=== PATIENT | male | born 1940 | race Caucasian/White ===

== ENCOUNTER 2017-02-24 14:44 | Outpatient (CLI) | payer OTHER | END 2017-02-24 14:45 | disposition home or self-care (01) | DX: N13.8 Other obstructive and reflux uropathy (principal); N32.3 Diverticulum of bladder ==

== ENCOUNTER 2017-06-10 17:30 | Outpatient (CLI) | payer MEDICARE | END 2017-06-10 17:31 | disposition critical access hospital (66) | LOC: EMS 17:30 | PROVIDERS: ATTEND Surgery | DX: R55 Syncope and collapse (principal) | CPT/HCPCS: A0425; A0429 ==

== ENCOUNTER 2017-06-10 17:51 | Observation (INO) | payer OTHER ==
--- NOTE | 2017-06-10 18:03 | ED Physician Documentation ---
PD HPI SYNCOPE - Stated complaint Stated Complaint: SYNCOPE - Chief complaint Chief Complaint: Cardiac - History obtained from History obtained from: Patient, Family, EMS - History of Present Illness Witnessed: Witnessed Timing - onset: Other (he has had weakness for 4 days and felt that he did not want to take his insulin (but was taking other oral medications). Today family noted his sugar was high (patient usually monitors it himself). He was also generally weak and had fainting/syncope while walking across the room trying to step over an object on the floor. Family says he looks like he was tremoring and then appeared to stop breathing for several seconds. He then aroused and was able to talk with them though sleepy.) Preceding symptoms: Light headed, Generalized weakness. No: Chest pain, Abdominal pain Associated symptoms: Seizure (tremoring activity). No: Incontinant of urine, Chest pain, Abdominal pain Contributing factors: Recent med change (he had not taken his insulin for 4 days.) Injury occurred: Fell. No: Head injury, Neck injury Treatment SOCIAL SERVICE DIRECTOR: Cardiac meds Similar symptoms before: Has not had sx before Recently seen: Not recently seen Review of Systems Constitutional: denies: Fever Nose: denies: Rhinorrhea / runny nose, Congestion Throat: denies: Sore throat Respiratory: denies: Cough GI: reports: Nausea. denies: Abdominal Pain, Vomiting, Diarrhea, Bloody / black stool : reports: Frequency Skin: denies: Abrasion (s), Laceration (s) Neurologic: reports: Generalized weakness, Syncope (today SOCIAL SERVICE DIRECTOR). denies: Focal weakness, Numbness, Altered mental status, Headache, Head injury Psychiatric: denies: Depressed, Insomnia Endocrine: denies: Weight loss Immunocompromised: denies: Immunocompromised PD PAST MEDICAL HISTORY - Past Medical History Cardiovascular: Hypertension, High cholesterol, Coronary artery disease, [place] Respiratory: None Neuro: None Endocrine/Autoimmune: Type 2 diabetes GI: None : None, Renal insuffiency (has fistula in place, pre-dialysis with Dr. Sinhg. ) HEENT: Chronic vision loss Psych: None Musculoskeletal: None Derm: None - Past Surgical History Past Surgical History: Yes Cardiovascular: CABG - Present Medications Home Medications: Ambulatory Orders Medication Instructions Recorded Confirmed Sodium Bicarbonate 3,250 mg PO BID 12/26/13 06/10/17 Atorvastatin Calcium 80 mg PO DAILY 07/22/16 06/10/17 Metoprolol Succinate [Toprol Xl] 25 mg PO BID 07/22/16 06/10/17 Tamsulosin HCl [Flomax] 0.8 mg PO DAILY 07/22/16 06/10/17 Aspirin EC [Ecotrin] 325 mg PO DAILY tablet 11/15/16 06/10/17 Insulin Aspart [NovoLOG] 1 - 9 unit SUBQ 11/15/16 0800,1200,1700,2100 pen Insulin Glargine [Lantus Solostar] 5 unit SUBQ QPM 30 Days 11/15/16 Insulin Glargine [Lantus Solostar] 40 unit SUBQ DAILY pen 11/15/16 Furosemide [Lasix] 40 mg PO DAILY 06/10/17 06/10/17 - Allergies Allergies/Adverse Reactions: Allergies Allergy/AdvReac Type Severity Reaction Status Date / Time No Known Drug Allergies Allergy Verified 11/10/16 16:00 - Social History Does the pt smoke?: No Smoking Status: Former smoker Does the pt drink ETOH?: No Does the pt have substance abuse?: No - Immunizations Immunizations are current?: Yes - POLST Patient has POLST: No PD ED PE NORMAL - Vitals Vital signs reviewed: Yes - General General: Alert and oriented X 3, No acute distress, Well developed/nourished - HEENT HEENT: Atraumatic, Ears normal, Pharynx benign. No: Moist mucous membranes - Neck Neck: Supple, no meningeal sign, No adenopathy - Cardiac Cardiac: RRR, No murmur, Other (pacemaker left chestwall without signs of pouch infection ) - Respiratory Respiratory: Clear bilaterally - Abdomen Abdomen: Normal bowel sounds, Soft, Non tender - Male Male : Deferred - Rectal Rectal: Deferred - Back Back: No CVA TTP - Derm Derm: Warm and dry. No: Normal color (mild pallor) - Extremities Extremities: No tenderness to palpate, Normal ROM s pain, No calf tenderness / cord, Other (1+ edema in both lower legs) - Neuro Neuro: Alert and oriented X 3, dust mop maker 2-12 intact, No motor deficit, Normal speech Results - Vitals Vitals: Vital Signs - 24 hr 06/10/17 06/10/17 06/10/17 17:53 19:39 20:26 Temperature 36.8 C Heart Rate 90 64 63 Respiratory 20 18 16 Rate Blood Pressure 142/75 H 145/60 H 144/54 H O2 Saturation 94 96 100 Oxygen O2 Source Room air - Labs Labs: Laboratory Tests 06/10/17 06/10/17 06/10/17 19:14 19:14 19:14 WBC 9.1 RBC 3.37 L Hgb 10.8 L Hct 31.7 L MCV 94.0 MCH 32.0 H MCHC 34.0 RDW 12.8 Plt Count 161 MPV 10.3 Neut # 6.7 H Lymph # 1.6 Tillman # 0.5 Eos # 0.2 Baso # 0.1 Absolute Nucleated RBC 0.01 Nucleated RBCs 0.1 VBG pH 7.359 VBG pCO2 29.8 L VBG pO2 122.4 H VBG HCO3 16.4 L VBG Total CO2 17.3 L VBG O2 Saturation 98.1 H VBG Base Excess -7.9 L Sodium 134 L Potassium 6.8 H* Chloride 109 Carbon Dioxide 18 L Anion Gap 7.0 BUN 56 H Creatinine 3.8 H Estimated GFR (MDRD) 16 L Glucose 488 H Calcium 9.5 Magnesium 1.6 L Total Bilirubin 0.2 AST 12 ALT 12 Alkaline Phosphatase 135 H Troponin I Total Protein 7.2 Albumin 3.4 Globulin 3.8 Albumin/Globulin Ratio 0.9 L Lipase 89 H Serum Ketones 06/10/17 06/10/17 19:14 19:14 WBC RBC Hgb Hct MCV MCH MCHC RDW Plt Count MPV Neut # Lymph # Tillman # Eos # Baso # Absolute Nucleated RBC Nucleated RBCs VBG pH VBG pCO2 VBG pO2 VBG HCO3 VBG Total CO2 VBG O2 Saturation VBG Base Excess Sodium Potassium Chloride Carbon Dioxide Anion Gap BUN Creatinine Estimated GFR (MDRD) Glucose Calcium Magnesium Total Bilirubin AST ALT Alkaline Phosphatase Troponin I < 0.04 Total Protein Albumin Globulin Albumin/Globulin Ratio Lipase Serum Ketones NEGATIVE - Rads (name of study) head CT Radiology: Prelim report reviewed (no acute injury noted; no acute changes) chest Radiology: Prelim report reviewed (no infiltrates seen) PD MEDICAL DECISION MAKING - ED course Complexity details: reviewed results (worse renal failure with elevated K. Elevated sugar but is not ketotic. Given IV fluids but not too much. Insulin IV. Gave meds to treat for the elevated K. Talked with Dr. Singh, who did not feel pateint needed transfer. Talked with Dr. Bradley, who will admit the patient. ), considered differential, d/w patient, d/w family, d/w cycle consultant ( Dr. Singh, who did not feel patient needed transfer. ) Departure - Departure Disposition: 66 [facility] DC/Xfer Clinical Impression: Chronic kidney disease (CKD), stage IV (severe), Weakness, Hyperkalemia, diminished renal excretion, Dehydration, Hyperglycemia Diabetes Qualifiers: Diabetes mellitus type: type 2 Diabetes mellitus complication status: with unspecified complications Diabetes mellitus long term care pharmacist insulin use: with long term care pharmacist use Qualified Code(s): E11.8 - Type 2 diabetes mellitus with unspecified complications Condition: Poor Record reviewed to determine appropriate education?: Yes
[2017-06-10] MEDS ORDERED: INSULIN REGULAR HUMAN 100 UNIT/1 ML 10 ML MDV IVP STA ×2 (18:26→19:49)
[2017-06-10] MEDS ORDERED: SODIUM CHLORIDE 0.9% 1,000 ML IV ONE ×2 (18:26→19:48)
--- NOTE | 2017-06-10 19:06 | CT Preliminary Report ---
Exam: CT Head W/O IMPRESSION: 1. Generalized age-related cortical atrophic changes without evidence of acute intracranial abnormali ty. 2. 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 3. Partial demonstration of right maxillary sinus opacification and paranasal sinus postoperative astrid nge. [facility] SITE ID: [id number]
--- NOTE | 2017-06-10 19:09 | CT Report ---
EXAM: CT HEAD EXAM DATE: 06/10/2017 06:43 PM. CLINICAL HISTORY: Syncope and seizure. COMPARISON: None. TECHNIQUE: Multiaxial CT images were obtained from the foramen magnum to the vertex. IV contrast: Non e. Reformats: Coronal. In accordance with CT protocol optimization, one or more of the following dose reduction techniques w ere utilized for this exam: automated exposure control, adjustment of mA and/or KV based on patient s ize, or use of iterative reconstructive technique. FINDINGS: Parenchyma: No intraparenchymal hemorrhage. No evidence of mass, midline shift, or CT findings of acu te infarction. Discrete hypodensity at the anterior left basal ganglia and adjacent anterior limb int ernal capsule is consistent with an old lacunar infarct. Brunner-white differentiation is distinct. Extraaxial Spaces: Normal for age. No subdural or epidural collections identified. Ventricles: The ventricles and cortical sulci are enlarged, consistent with age-related tissue loss. Sinuses: Total opacification of the visualized portion of the right maxillary sinus. Evidence of prob able right antrectomy and bilateral partial ethmoidectomies. Mild soft tissue thickening bilaterally within ethmoid air cells. Bones: No evidence of fracture or calvarial defect. Other: Diffuse chronic microangiopathic white matter changes are evident. IMPRESSION: 1. Generalized age-related cortical atrophic changes without evidence of acute intracranial abnormali ty. 2. 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 3. Partial demonstration of right maxillary sinus opacification and paranasal sinus postoperative astrid nge. [facility] Referring Provider Line: [phone] SITE ID: [id number]
--- NOTE | 2017-06-10 19:11 | XRAY Preliminary Report ---
Exam: XR Chest 2 View PA/LAT IMPRESSION: Mild cardiomegaly. Imanr. [facility] SITE ID: [id number]
[2017-06-10] MEDS ORDERED: INSULIN REGULAR HUMAN 100 UNIT/1 ML 10 ML MDV ONE ×2 (19:15→20:13)
[2017-06-10 19:22] LABS: VBG BASE EXCESS -7.9 mmol/L (-2 - +2); VBG OXYGEN SATURATION 98.1 % (60-80); VBG PH 7.359 (7.31-7.41); VBG TOTAL CO2 17.3 mmol/L (24-29)
--- NOTE | 2017-06-10 19:24 | XRAY Report ---
EXAM: CHEST RADIOGRAPHY EXAM DATE: 06/10/2017 06:57 p.m. CLINICAL HISTORY: Weakness for 4 days. COMPARISON: 11/11/2016. TECHNIQUE: 2 views. FINDINGS: Lungs/Pleura: No focal opacities evident. No pleural effusion. No pneumothorax. Normal volumes. Mediastinum: Stable mild cardiomegaly. Remote sternotomy. Stable dual lead right subclavian pacer. Other: None. IMPRESSION: Mild cardiomegaly. Pacer. [facility] Referring Provider Line: [phone] SITE ID: [id number]
[2017-06-10 19:29] LABS: BASOPHILS # (AUTO) 0.1 10^3/uL (0.0-0.1); BASOPHILS % (AUTO) 0.7 %; EOSINOPHILS # (AUTO) 0.2 10^3/uL (0.0-0.7); HCT - HEMATOCRIT 31.7 % (42.0-52.0); HGB - HEMOGLOBIN 10.8 g/dL (14.0-18.0); LYMPHOCYTES # (AUTO) 1.6 10^3/uL (1.5-3.5); LYMPHOCYTES % (AUTO) 17.4 %; MEAN PLATELET VOLUME 10.3 fL (7.4-11.4); MONOCYTES # (AUTO) 0.5 10^3/uL (0.0-1.0); MONOCYTES % (AUTO) 5.8 %; NEUTROPHILS # (AUTO) 6.7 10^3/uL (1.5-6.6); NEUTROPHILS % (AUTO) 74.1 %; NUCLEATED RED BLOOD CELLS AUTO 0.1 /100WBC; RED BLOOD COUNT 3.37 10^6/uL (4.70-6.10); RED CELL DISTRIBUTION WIDTH 12.8 % (12.0-15.0); UNCORRECTED WHITE BLOOD COUNT 9.1 x10^3/uL; WHITE BLOOD COUNT 9.1 x10^3/uL (4.8-10.8)
[2017-06-10 19:41] LABS: ALBUMIN/GLOBULIN RATIO 0.9 (1.0-2.2); BILIRUBIN,TOTAL 0.2 mg/dL (0.2-1.0); CALCIUM 9.5 mg/dL (8.5-10.3); CREATININE 3.8 mg/dL (0.6-1.2); MAGNESIUM 1.6 mg/dL (1.7-2.8); TOTAL PROTEIN 7.2 g/dL (6.7-8.2)
[2017-06-10 19:43] LABS: POTASSIUM 6.8 mmol/L (3.5-5.0)
[2017-06-10] MEDS ORDERED: SODIUM BICARBONATE ABBOJECT 50 MEQ/50 ML SYRINGE IVP STA (19:48)
[2017-06-10] MEDS ORDERED: CALCIUM GLUCONATE 1000 MG/10 ML VIAL IVP STA (19:48)
[2017-06-10] MEDS ORDERED: SODIUM BICARBONATE ABBOJECT 50 MEQ/50 ML SYRINGE ONE (20:13)
[2017-06-10] MEDS ORDERED: CALCIUM GLUCONATE 1000 MG/10 ML VIAL ONE (20:13)
[2017-06-10] MEDS ORDERED: SODIUM CHLORIDE FLUSH 0.9% 10 ML SYRINGE IVP PRN (20:41)
[2017-06-10] MEDS ORDERED: ONDANSETRON ODT 4 MG TABLET TL PRN (20:41)
[2017-06-10] MEDS ORDERED: HYDROcod/ACETAM 5/325 MG TABLET PO PRN (20:41)
[2017-06-10] MEDS ORDERED: ONDANSETRON 4 MG/2 ML VIAL IVP PRN (20:41)
[2017-06-10] MEDS ORDERED: ACETAMINOPHEN 325 MG TABLET PO PRN (20:41)
[2017-06-10] MEDS ORDERED: SODIUM POLYSTYRENE SULFONATE 15 GM/60 ML BOTTLE PO STA (20:49)
[2017-06-10 21:05] LABS: BILIRUBIN,URINE NEGATIVE (NEGATIVE)
[2017-06-10 21:09] LABS: UA w/ MICROSCOPIC CHARGE YES
[2017-06-10] MEDS ORDERED: SODIUM POLYSTYRENE SULFONATE 15 GM/60 ML BOTTLE ONE (21:13)
[2017-06-10 21:22] LABS: UR CULTURE IF IND NOT INDICATED; WBC,URINE 0-3 /HPF (0-3)
[2017-06-10 22:06] LABS: HEMOGLOBIN A1C 1.18 g/dL
[2017-06-10] MEDS ORDERED: INSULIN REGULAR HUMAN 100 UNIT/1 ML 10 ML MDV IVP SCH (22:10)
[2017-06-10] MEDS ORDERED: INSULIN GLARGINE 300 UNIT/3 ML PEN SUBQ SCH (22:10)
[2017-06-10] MEDS ORDERED: MAGNESIUM SULFATE 2 GRAM 50 ML IV ONE (22:23)
--- NOTE | 2017-06-10 22:33 | HISTORY & PHYSICAL EXAMINATION ---
Chief Complaint - Chief Complaint Chief Complaint: Syncope History of Present Illness - Admitted From Admitted From:: Emergency Department - History Obtained From Records Reviewed: Previous admissions, ED report, Echocardiogram History obtained from: Patient and records - History of Present Illness HPI Comment/Other: 76-year-old white male with insulin-dependent diabetes, chronic kidney disease, hypertension, and coronary artery disease presented to the Emergency Department by EMS for a witnessed syncopal episode. Patient states he has not been taking his insulin (45 units lantus twice daily) for the past 3-4 days because "I have been feeling pretty good." Today, reports feeling tired and weak while ambulating at home when he was maneuvering around clutter on the floor and he fell to his knees and couldn't get back up. Patient admits his recollection of the event is poor. Patient's son witnessed the event and reports he fell to the floor and had a moment of unconsciousness without breathing and involuntary extremity movement. No incontinence reported. In the emergency department the patient is found to have a potassium level of 6.8 and blood glucose of 488. Patient received 10 units of intravenous regular insulin and 1000 mg of calcium gluconate. A repeat potassium level is drawn 2 hours post treatment and his potassium level is 5.6. Kayexalate 15 mg was administered orally. Patient denies trying to harm himself by not taking his insulin. He is admitted to observation status for continued treatment of hyperkalemia and monitoring for syncope. Review of Systems - Constitutional Constitutional: reports: Weakness. denies: Fatigue, Fever, Chills, Poor appetite, Diaphoresis - Eyes Eyes: reports: Blurred vision (eye sight worsening, > 2 years since last evaluation.). denies: Pain, Corrective lenses - Ears, Nose & Throat Ears, Nose & Throat: reports: Hearing loss. denies: Hearing aids, Tinnitus, Dentures, Sore throat, Dental decay, Dental pain - Cardiovascular Cariovascular: reports: Lightheadedness (Describes prior to syncopal episode), Syncope (Today). denies: Irregular heart rate, Palpitations, Chest pain, Edema , Orthopnea - Respiratory Respiratory: reports: SOB with exertion. denies: Cough, Sputum production - Gastrointestinal Gastrointestinal: denies: Abdominal pain, Constipation, Diarrhea, Black stools, Bloody stools, Nausea, Vomiting - Genitourinary Genitourinary: reports: Incontinence. denies: Dysuria, Hematuria, Flank pain - Musculoskeletal Musculoskeletal: reports: Back pain (chronic). denies: Muscle aches, Joint pain - Neurological Neurological: reports: General weakness, Numbness (bilateral feet.). denies: Focal weakness, Headache, Abnormal gait - Psychiatric Psychiatric: denies: Depression, Anxiety, Suicidal - Hematologic/Lymphatic Hematologic/Lymphatic: reports: Bruising - All Other Systems All Other Systems: reports: Reviewed and negative History - Past Medical History Cardiovascular: reports: Hypertension, High cholesterol, Coronary artery disease , [place] (2012) Respiratory: reports: None Neuro: reports: Peripheral neuropathy Endocrine/Autoimmune: reports: Type 2 diabetes (Insulin dependent) GI: reports: None SENIOR J2EE DEVELOPER: reports: None : reports: None, Renal insuffiency (Stage IV; left arm fistula in place, no dialysis yet. Voting Machine Repairer is Dr. Singh.) HEENT: reports: Chronic vision loss Psych: reports: None Musculoskeletal: reports: None Derm: reports: None MRSA Hx?: No Other Past Medical History: Skin cancer removed to Left side of neck x2. - Past Surgical History /SENIOR J2EE DEVELOPER: reports: Other ([facility], 2003) Cardiovascular: reports: CABG (3-vessel, 2012), Pacemaker - Family & Social History Family History: Mother: (lung cancer, heart failure), Father: , Sister: Family History Comment/Other: Multiple family members with hypertension, heart disease, and diabetes. Living arrangement: At home Living Situation: With family Social History Notes: Patient lives in an apartment; his son's family moved in with him 7 week ago, currently there are 3 adults and 3 children living in the patient's 2 bedroom apartment. He states it is a little chaotic but "family helps each other out." His girlfriend of 40 years lives nearby and suffered from an [place], discharged from the hospital yesterday. 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 He has 4 daughters and 1 son; his son lives with him and is able to assist a little with his care. - Substance History Use: Uses substance without health or social issues: Tobacco (Age [age]. None since.), Alcohol (Occasional) Abuse: Recurrent use of substance despite neg consequences: NONE Dependence: Experiences withdrawal or developed tolerances: NONE Tobacco Details: Cigarettes - POLST Patient has POLST: No POLST Status: Full Code Meds/Allgy - Home Medications Home Medications: Ambulatory Orders Medication Instructions Recorded Confirmed Sodium Bicarbonate 3,250 mg PO BID 12/26/13 06/10/17 Atorvastatin Calcium 80 mg PO DAILY 07/22/16 06/10/17 Metoprolol Succinate [Toprol Xl] 25 mg PO BID 07/22/16 06/10/17 Tamsulosin HCl [Flomax] 0.8 mg PO DAILY 07/22/16 06/10/17 Aspirin EC [Ecotrin] 325 mg PO DAILY tablet 11/15/16 06/10/17 Insulin Aspart [NovoLOG] 1 - 9 unit SUBQ 11/15/16 0800,1200,1700,2100 pen Insulin Glargine [Lantus Solostar] 5 unit SUBQ QPM 30 Days 11/15/16 Insulin Glargine [Lantus Solostar] 40 unit SUBQ DAILY pen 11/15/16 Furosemide [Lasix] 40 mg PO DAILY 06/10/17 06/10/17 - Allergies Allergies/Adverse Reactions: Allergies Allergy/AdvReac Type Severity Reaction Status Date / Time No Known Drug Allergies Allergy Verified 11/10/16 16:00 Exam - Vital Signs Reviewed Vital Signs: Yes Vital Signs: Vital Signs x48h Pulse Resp BP Pulse Ox 06/10/17 21:49 83 18 163/76 H 97 - Physical Exam General Appearance: positive: No acute distress, Alert, Other (Pale and mildly disheveled.) Eyes Bilateral: positive: Normal inspection, PERRL, EOMI ENT: positive: ENT inspection nml, Pharynx nml Neck: positive: Nml inspection, Thyroid nml, No JVD, Trachea midline Respiratory: positive: Chest non-tender, No respiratory distress, Breath sounds nml Cardiovascular: positive: Regular rate & rhythm Peripheral Pulses: positive: 2+ (Radial and pedal.) Abdomen: positive: Non-tender, Nml bowel sounds, No distention Back: positive: Nml inspection Skin: positive: Color nml, Warm, Dry Extremities: positive: Non-tender, Full ROM, No pedal edema Neurologic/Psychiatric: positive: Oriented x3, CN's nml (2-12), Motor nml, Sensation nml (decreased sensation to bilateral feet.) Conclusion/Plan - Problem List (1) Syncope Conclusion/Plan: Patient with witnessed syncopal episode. He reports feeling weak and "feeling like I was going to fall," prior to the event. He denied heart palpitations, chest pain, or shortness of breath. Patient has a pacemaker and is atrially paced on EKG, no murmur is noted upon auscultation and echocardiogram from 2015 reviewed with no signs of aortic stenosis; thus a cardiac cause for his syncopal episode is unlikely. Troponin negative. The patient does describe prodome symptoms which would be consistent with orthostatic hypotension, dehydration. This correlates with his slightly higher than normal creatinine of 3.8. * Orthostatic vital signs: patient is not orthostatic after receiving 2 liters of intravenous fluids in the ED. * Telemetry: monitor overnight for arrhythmias Qualifiers: Syncope type: unspecified Qualified Code(s): R55 - Syncope and collapse (2) Hyperkalemia, diminished renal excretion Conclusion/Plan: Patient states he has not been taking his insulin x 3-4 days. Potassium level 6.8 in the Emergency Department. He received 10 units of regular insulin and 1, 000 mg calcium gluconate intravenously. His K+ was 5.6 two hours post treatment. He received 15 mg kayexalate orally prior to transferring to medical unit. * 5 units regular insulin intravenously x 1. * Recheck BMP at 0200 (4 hours post treatment). * Telemetry. (3) Chronic kidney disease (CKD), stage IV (severe) Conclusion/Plan: Patient is established with Voting Machine Repairer; Dr. Bettencourt. A left wrist fistula was placed in 2013 but he has not required dialysis yet. Dr. Underwood consulted with Nephrology prior to admission and felt he was an appropriate admission for this facility. His Cr is 3.8 tonight, his baseline is 3.2-3.3. Appears to represent slight dehydration and he was rehydrated with 2 liters of normal saline in the ED. Patient with chronic anemia related to CKD, H/H at baseline. * Recheck kidney function at 0200; BMP. * Hold furosemide during hospitalization. * No blood draw, IV sites, or blood pressures to left arm. (4) Hyperglycemia due to type 2 diabetes mellitus Conclusion/Plan: Hyperglycemia due to lack of insulin administration for the past 3-4 days. Blood glucose 488 upon arrival in the Emergency Department. After treatment with 10 units of regular insulin intravenously in the ED, his blood sugar was 222 upon arrival on the medical unit. * 5 units regular insulin intravenously x 1. * 40 units lantus twice daily subcutaneously (start now). * Hemoglobin A1c drawn tonight: 11.5 * ACHS blood sugar monitoring with low dose sliding scale humalog insulin. * Level III carbohydrate controlled diet. * Discuss with patient prior to discharge importance of insulin therapy. Qualifiers: Diabetes mellitus meterman insulin use: with detention use Qualified Code( s): E11.65 - Type 2 diabetes mellitus with hyperglycemia; Z79.4 - intermediate ( current) use of insulin (5) Hypomagnesemia Conclusion/Plan: Magnesium level 1.6 upon admission. * 2 gm magnesium intravenously x 1. * Telemetry. (6) Hypertension associated with chronic kidney disease due to type 2 diabetes mellitus Conclusion/Plan: Chronic hypertension. * Continue on home medications. * Vital signs every 8 hours. - Lab Results Fish Bones: 06/10/17 19:14 06/10/17 20:45 Issues/Core Measures - Anticipated LOS Anticipated Stay Length: Less than 2 midnights - DVT/VTE - Prophylaxis VTE/DVT Device ordered at admit?: No VTE/DVT Prophylaxis med ordered at admit?: Yes
[2017-06-10] MEDS: METOPROLOL SUCCINATE 25 MG TABLET PO SCH (23:18)
[2017-06-10] MEDS: SODIUM BICARBONATE 650 MG TABLET PO SCH (23:18)
[2017-06-10] MEDS: SODIUM CHLORIDE FLUSH 0.9% 10 ML SYRINGE IVP SCH (23:36)
[2017-06-11 02:22] LABS: CALCIUM 9.2 mg/dL (8.5-10.3); CREATININE 3.4 mg/dL (0.6-1.2); POTASSIUM 5.6 mmol/L (3.5-5.0)
[2017-06-11] MEDS ORDERED: SODIUM CHLORIDE 0.9% 500 ML IV SCH (03:30)
[2017-06-11] MEDS: SODIUM CHLORIDE FLUSH 0.9% 10 ML SYRINGE IVP SCH (05:52)
--- NOTE | 2017-06-11 07:04 | Discharge Plan ---
Discharge Plan Disposition: 01 Home, Self Care Condition: Good Diet: Low Sodium Activity Restrictions: Activity as Tolerated Shower Restrictions: No Driving Restrictions: No Additional Instructions or Follow Up instructions: You were placed in observation because of a witnessed episode of loss of consciousness. You were unaware of this. You feel that you just tripped and fell but your family is very sure that you passed out and had momentary episodes of tremors while unconscious. We found you to have a severely elevated potassium and worsening of your chronic renal failure. This may have led to a heart arrhythmia that caused you to pass out. During your observation in this hospital we lowered your potassium with IV insulin, and gave you hydration to help your renal failure. You are now gone back to your baseline status. We encourage you to followup with Dr. Singh, your writing tutor, and be seen in the next few days for blood work. We also strongly urge you to make sure you take your medicines as instructed. You had stopped your insulin because you were feeling "so good" but that was a mistake. We have advised you to give all of your medicines to your family, and they be responsible for giving the medicines to you and watching you take your insulin to make sure you stay on schedulue for the medicine since you think your memory is getting "foggy" and you sometimes forget to take them. No Smoking: If you smoke, Please STOP! Call for help. Follow-up with: Monty Singh MD [Provider Admit Priv/Credential] -
[2017-06-11 07:27] LABS: CALCIUM 9.3 mg/dL (8.5-10.3); CREATININE 3.3 mg/dL (0.6-1.2); POTASSIUM 5.6 mmol/L (3.5-5.0)
[2017-06-11 07:44] VITALS: BP 127/61
[2017-06-11] MEDS ORDERED: INSULIN GLARGINE 300 UNIT/3 ML PEN SUBQ SCH ×2 (08:00→21:00)
[2017-06-11] MEDS ORDERED: INSULIN ASPART 300 UNIT/3 ML PEN SUBQ SCH (08:00)
[2017-06-11] MEDS: METOPROLOL SUCCINATE 25 MG TABLET PO SCH (08:06)
[2017-06-11] MEDS: SODIUM BICARBONATE 650 MG TABLET PO SCH (08:07)
--- NOTE | 2017-06-11 08:59 | DISCHARGE SUMMARY ---
Discharge Summary Admit Date: 06/10/17 Discharge Date: 06/11/17 Discharging Provider: Allison Stewart APRN Code Status: Attempt Resuscitation Condition at Discharge: Good Discharge Disposition: 01 Home, Self Care Discharge Facility Name: [facility] - DIAGNOSES Admission Diagnoses: 1. Acute kyperkalemia with ESRD not on dialysis 2. Insulin dependent diabetes mellitus, uncontrolled with ESRD and peripheral neuropathy 3. Obesity with BMI>30 and excessive caloric intake 4. Mixed hyperlipidemia 5. Hypertensive heart disease without CHF 6. Hypomagnesium 7. Syncope with collapse Discharge Diagnoses with Status of Each Condition: 1. Acute kyperkalemia with ESRD not on dialysis 2. Insulin dependent diabetes mellitus, uncontrolled with ESRD and peripheral neuropathy 3. Obesity with BMI>30 and excessive caloric intake 4. Mixed hyperlipidemia 5. Hypertensive heart disease without CHF 6. Hypomagnesium 7. Syncope with collapse - HPI History of Present Illness: 76-year-old white male with insulin-dependent diabetes, chronic kidney disease, hypertension, and coronary artery disease presented to the Emergency Department by EMS for a witnessed syncopal episode. Patient states he has not been taking his insulin (45 units lantus twice daily) for the past 3-4 days because "I have been feeling pretty good." Today, reports feeling tired and weak while ambulating at home when he was maneuvering around clutter on the floor and he fell to his knees and couldn't get back up. Patient admits his recollection of the event is poor. Patient's son witnessed the event and reports he fell to the floor and had a moment of unconsciousness without breathing and involuntary extremity movement. No incontinence reported. In the emergency department the patient is found to have a potassium level of 6.8 and blood glucose of 488. Patient received 10 units of intravenous regular insulin and 1000 mg of calcium gluconate. A repeat potassium level is drawn 2 hours post treatment and his potassium level is 5.6. Kayexalate 15 mg was administered orally. Patient denies trying to harm himself by not taking his insulin. He is admitted to observation status for continued treatment of hyperkalemia and monitoring for syncope. - CONSULTS | PROCEDURES Consultations: none Procedures: CT of head- iimpression shows no acute process with old left lacunar infarct Chest xray- shows no acute infiltrate or effusions - HOSPITAL COURSE Hospital Course: 76-year-old white male with insulin-dependent diabetes, chronic kidney disease, hypertension, and coronary artery disease presented to the Emergency Department by EMS fand admitted to observation for a witnessed syncopal episode with collapse. Patient was noncompliant with his insulin at home. He was started back on home dosage SQ insulin and sliding scale. He was on diabetic diet. At home he had a fall, he was placed on fall precautions. He had hyperkalemia at time of admission and was given calcium gluconate insulin and potassium levels improved to 5.4. He is pending dialysis at this time. Patient admits his recollection of the event is poor so mental status was monitored overnight. CT of the head was negative for acute process. At time of admission his blood glucose was 488, he was placed on accuchecks and sliding scale and it improved to less than 200 prior to discharge. Kayexalate 15 mg was administered orally in the ER. Patient denies trying to harm himself by not taking his insulin so no suicide intervention needed. This morning, patient was alert and oriented x 3 and blood glucose stable with no nausea or vomiting, chest pain or shortness of breath. He was able to return home with family in private vehicle. Instructions for followup with PCP were given and patient and family verbally understood. - ALLERGIES Allergies/Adverse Reactions: Allergies Allergy/AdvReac Type Severity Reaction Status Date / Time No Known Drug Allergies Allergy Verified 11/10/16 16:00 - MEDICATIONS Home Medications: Ambulatory Orders Medication Instructions Recorded Confirmed Sodium Bicarbonate 3,250 mg PO BID 12/26/13 06/10/17 Atorvastatin Calcium 80 mg PO DAILY 07/22/16 06/10/17 Metoprolol Succinate [Toprol Xl] 25 mg PO BID 07/22/16 06/10/17 Tamsulosin HCl [Flomax] 0.8 mg PO DAILY 07/22/16 06/10/17 Aspirin EC [Ecotrin] 325 mg PO DAILY tablet 11/15/16 06/10/17 Insulin Aspart [NovoLOG] 1 - 9 unit SUBQ 11/15/16 0800,1200,1700,2100 pen Insulin Glargine [Lantus Solostar] 5 unit SUBQ QPM 30 Days 11/15/16 Insulin Glargine [Lantus Solostar] 40 unit SUBQ DAILY pen 11/15/16 Furosemide [Lasix] 40 mg PO DAILY 06/10/17 06/10/17 - PHYSICAL EXAM AT DISCHARGE General Appearance: positive: No acute distress, Alert Eyes Bilateral: positive: Normal inspection, PERRL, EOMI ENT: positive: ENT inspection nml, Pharynx nml Neck: positive: Nml inspection, Thyroid nml, No JVD, Trachea midline Respiratory: positive: Chest non-tender, No respiratory distress, Breath sounds nml Cardiovascular: positive: Regular rate & rhythm, No murmur, No gallop Peripheral Pulses: positive: 2+ Abdomen: positive: Non-tender, No organomegaly, Nml bowel sounds, No distention. negative: Guarding, Rebound Back: positive: Nml inspection Skin: positive: Color nml, No rash, Warm, Dry Extremities: positive: Non-tender, Full ROM, Nml appearance Neurologic/Psychiatric: positive: Oriented x3, CN's nml (2-12), Motor nml, Mood/ affect nml - LABS Result Diagrams: 06/10/17 19:14 06/11/17 07:11 - FOLLOW UP Follow Up: Patient was instructed fo continue all home medication and to follow up with primary care provider within 1-2 days of discharge. Time spent on discharge instructions and planning was 40 minutes.
[2017-06-11] MEDS ORDERED: POLYETHYLENE GLYCOL 3350 17 GM PACKET PO SCH (09:00)
[2017-06-11] MEDS ORDERED: ENOXAPARIN 30 MG/0.3 ML SYRINGE SUBQ SCH (09:00)
[2017-06-11] MEDS ORDERED: ATORVASTATIN 40 MG TABLET PO SCH (09:00)
[2017-06-11] MEDS ORDERED: TAMSULOSIN 0.4 MG CAPSULE PO SCH (09:00)
[2017-06-11] MEDS ORDERED: ASPIRIN EC 81 MG TABLET PO SCH (09:00)
== END 2017-06-11 09:35 | disposition home or self-care (01) ==
LOC: EDUNIT# → ED 17:51 → MS 20:41
PROVIDERS: ADMIT Specialist; ATTEND Nurse Practitioner
DX: E87.5 Hyperkalemia (principal); E11.22 Type 2 diabetes mellitus with diabetic chronic kidney disease; E11.65 Type 2 diabetes mellitus with hyperglycemia; I13.11 Hypertensive heart and chronic kidney disease without heart failure, with stage 5 chronic kidney disease, or end stage renal disease; N18.4 Chronic kidney disease, stage 4 (severe); Z79.4 Long term (current) use of insulin; R55 Syncope and collapse; T38.3X6A Underdosing of insulin and oral hypoglycemic [antidiabetic] drugs, initial encounter; Z91.128 Patient's intentional underdosing of medication regimen for other reason; Y92.009 Unspecified place in unspecified non-institutional (private) residence as the place of occurrence of the external cause; E66.9 Obesity, unspecified; Z68.31 Body mass index [BMI] 31.0-31.9, adult; E78.2 Mixed hyperlipidemia; E83.42 Hypomagnesemia; I25.810 Atherosclerosis of coronary artery bypass graft(s) without angina pectoris; Z95.0 Presence of cardiac pacemaker; Z91.81 History of falling; E11.42 Type 2 diabetes mellitus with diabetic polyneuropathy; I25.2 Old myocardial infarction; Z87.891 Personal history of nicotine dependence; Z86.73 Personal history of transient ischemic attack (TIA), and cerebral infarction without residual deficits; H53.8 Other visual disturbances; H91.90 Unspecified hearing loss, unspecified ear; Z85.828 Personal history of other malignant neoplasm of skin; D63.1 Anemia in chronic kidney disease
CPT/HCPCS: 36415; 70450; 71020; 80048; 80053; 81001; 82009; 82803; 83036; 83690; 83735; 84132; 84484; 85025; 93005; 96361; 96365; 96366; 96375; 99284; 99285; A9270; G0378; J1815; 81003; 87086; 96374

== ENCOUNTER 2017-07-14 16:33 | Outpatient (CLI) | payer MEDICARE | END 2017-07-14 16:34 | disposition critical access hospital (66) | LOC: EMS 16:33 | PROVIDERS: ATTEND Surgery | DX: R41.0 Disorientation, unspecified (principal) | CPT/HCPCS: A0425; A0427 ==

== ENCOUNTER 2017-07-14 17:03 | Emergency (ER) | payer MEDICARE ==
--- NOTE | 2017-07-14 17:24 | ED Physician Documentation ---
PD HPI ALTERED MENTAL STATUS - Stated complaint Stated Complaint: ABNORMAL LABS - Chief complaint Chief Complaint: General - History obtained from History obtained from: Patient - History of Present Illness Timing - onset: Today Timing - duration: Hours Timing - details: Gradual onset Quality / character: Confused (he was seeming some confused and his son checked his sugar at home and it was elevated in 300s. The patient was not sure if he took his insulin today, with poor recall. Son says patient has memory problems bu also does not like taking his meds. Lives with son but they work so pt alone most of the day. Son asks about in home sales consultant.) Contributing factors: Diabetic. No: Intoxicated, Substance abuse Basline status: Alert and oriented X 3, Ambulatory Similar symptoms before: Diagnosis (hyperglycemia) Recently seen: Emergency Dept Review of Systems Constitutional: denies: Fever Nose: denies: Rhinorrhea / runny nose, Congestion Throat: denies: Sore throat Respiratory: denies: Cough GI: denies: Nausea, Vomiting, Diarrhea Musculoskeletal: denies: Extremity swelling PD PAST MEDICAL HISTORY - Past Medical History Cardiovascular: Hypertension, High cholesterol, Coronary artery disease, [place] ( 2011) Respiratory: None Neuro: Peripheral neuropathy Endocrine/Autoimmune: Type 2 diabetes (Insulin dependent) GI: None [employer]ODUCT [employer]: None : None, Renal insuffiency (Stage IV; left arm fistula in place, no dialysis yet. 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.) HEENT: Chronic vision loss Psych: None Musculoskeletal: None Derm: None - Past Surgical History Past Surgical History: Yes /[employer]ODUCT [employer] INTER[employer]: Other ([employer], 2002) Cardiovascular: CABG (3-vessel, 2011), Pacemaker - Present Medications Home Medications: Ambulatory Orders Medication Instructions Recorded Confirmed Sodium Bicarbonate 3,250 mg PO BID 12/26/13 07/14/17 Atorvastatin Calcium 80 mg PO DAILY 07/22/16 07/14/17 Metoprolol Succinate [Toprol Xl] 25 mg PO BID 07/22/16 07/14/17 Tamsulosin HCl [Flomax] 0.8 mg PO DAILY 07/22/16 07/14/17 Aspirin EC [Ecotrin] 325 mg PO DAILY tablet 11/15/16 07/14/17 Insulin Aspart [NovoLOG] 1 - 9 unit SUBQ 11/15/16 07/14/17 0800,1200,1700,2100 pen Insulin Glargine [Lantus Solostar] 5 unit SUBQ QPM 30 Days 11/15/16 07/14/17 Insulin Glargine [Lantus Solostar] 40 unit SUBQ DAILY pen 11/15/16 07/14/17 Furosemide [Lasix] 40 mg PO DAILY 06/10/17 07/14/17 Sod Polystyrene Sulf. [Kayexalate] 10 gm PO DAILY #200 ml 07/14/17 - Allergies Allergies/Adverse Reactions: Allergies Allergy/AdvReac Type Severity Reaction Status Date / Time No Known Drug Allergies Allergy Verified 07/14/17 17:12 - Social History Does the pt smoke?: No Smoking Status: Former smoker Does the pt drink ETOH?: No Does the pt have substance abuse?: No - Immunizations Immunizations are current?: Yes - POLST Patient has POLST: No POLST Status: Full Code PD ED PE NORMAL - Vitals Vital signs reviewed: Yes - General General: Alert and oriented X 3, Well developed/nourished, Other (generally unkempt) - HEENT HEENT: Atraumatic, Pharynx benign - Neck Neck: Supple, no meningeal sign, No adenopathy, No JVD - Cardiac Cardiac: RRR, No murmur - Respiratory Respiratory: Clear bilaterally - Abdomen Abdomen: Soft, Non tender - Derm Derm: Normal color, Warm and dry - Extremities Extremities: Normal ROM s pain, No edema - Neuro Neuro: Alert and oriented X 3, No motor deficit, Normal speech Results - Vitals Vitals: Vital Signs - 24 hr 07/14/17 07/14/17 07/14/17 17:07 18:24 20:04 Heart Rate 68 64 68 Respiratory 18 16 16 Rate Blood Pressure 147/62 H 148/78 H O2 Saturation 97 97 Oxygen O2 Source Room air - Labs Labs: Laboratory Tests 07/14/17 07/14/17 07/14/17 17:33 17:58 18:50 Sodium 136 Potassium 6.8 H* Chloride 109 Carbon Dioxide 22 Anion Gap 5.0 L BUN 51 H Creatinine 3.7 H Estimated GFR (MDRD) 16 L Glucose 306 H POC Whole Bld Glucose 266 H Calcium 8.7 Total Bilirubin 0.5 AST 12 ALT 12 Alkaline Phosphatase 115 Total Protein 6.5 L Albumin 3.0 L Globulin 3.5 Albumin/Globulin Ratio 0.9 L Lipase 86 H Urine Color YELLOW Urine Clarity HAZY Urine pH 7.0 Ur Specific Pe Ell 1.020 Urine Protein >=300 Urine Glucose (UA) >=1000 H Urine Ketones NEGATIVE Urine Occult Blood TRACE-LYSE Urine Nitrite NEGATIVE Urine Bilirubin NEGATIVE Urine Urobilinogen 0.2 (NORMAL) Ur Leukocyte Esterase NEGATIVE Urine RBC 0-5 Urine WBC 0-3 Ur Squamous Epith Cells FEW Squamous Urine Bacteria Rare Urine Casts 0-2 Hyaline Casts Urine Mucus Few Strands Ur Microscopic Review INDICATED Urine Culture Comments NOT INDICATED Serum Ketones NEGATIVE 07/14/17 19:20 Sodium 138 Potassium 5.9 H Chloride 108 Carbon Dioxide 23 Anion Gap 7.0 BUN 53 H Creatinine 3.7 H Estimated GFR (MDRD) 16 L Glucose 265 H POC Whole Bld Glucose Calcium 9.0 Total Bilirubin AST ALT Alkaline Phosphatase Total Protein Albumin Globulin Albumin/Globulin Ratio Lipase Urine Color Urine Clarity Urine pH Ur Specific Pe Ell Urine Protein Urine Glucose (UA) Urine Ketones Urine Occult Blood Urine Nitrite Urine Bilirubin Urine Urobilinogen Ur Leukocyte Esterase Urine RBC Urine WBC Ur Squamous Epith Cells Urine Bacteria Urine Casts Urine Mucus Ur Microscopic Review Urine Culture Comments Serum Ketones PD MEDICAL DECISION MAKING - ED course Complexity details: reviewed old records (similar episodes recently from not remembering to take meds. Has had elevated potassium as well and has been in hospital overnight for treatment. Last episode, showed consult with Dr. Singh, who did not want transfer but to treat medically and see if improves. ), reviewed results, re-evaluated patient (patient josé miguel does not want to be in hospital. He has elevated blood sugar and also potassium. Given meds in ED and repeat Potassium is reduced to baseline. I urged him for OBS again and he said he wanted to go home, aware of risks of arrhythmia, hypotension, . ), considered differential, d/w patient, d/w family (son asks about in home sales consultant but SW already gone so not sure what his insurance qualifies for. They can call back or talk with PMD. Son also says the patient does not drive well and asks about taking his license away. I don't know how to do that at this time of day, so to talk with PMD Monday when DMV is open to see what procedure is for him to do driving test or such. ) Departure - Departure Disposition: 01 Home, Self Care Clinical Impression: Hyperglycemia, Hyperkalemia, diminished renal excretion Condition: Stable Record reviewed to determine appropriate education?: Yes Instructions: Hyperkalemia Dc Follow-Up: Monty Kruger MD [Primary Care Provider] - Monty Singh MD [Provider Admit Priv/Credential] - Prescriptions: Sod Polystyrene Sulf. [Kayexalate] 10 gm PO DAILY #200 ml Comments: Continue usual medications including your insulins. The careful trying to not miss dosing. I like the alarm idea that you have set up. Have your son work with your primary care to try to set up some home health or aides to come in and help. Take the Kayexalate daily for several more days to help keep the potassium level a little bit lower. Recheck if not better over the next few days. Follow-up with your primary care Monday for recheck of your blood tests. Discharge Date/Time: 07/14/17 20:04
[2017-07-14] MEDS ORDERED: SODIUM CHLORIDE 0.9% 500 ML IV ONE (17:26)
[2017-07-14] MEDS ORDERED: INSULIN REGULAR HUMAN 100 UNIT/1 ML 10 ML MDV IVP STA (17:30)
[2017-07-14] MEDS ORDERED: INSULIN NPH HUMAN 100 UNIT/1 ML 10 ML MDV SUBQ STA (17:31)
[2017-07-14] MEDS ORDERED: INSULIN NPH HUMAN 100 UNIT/1 ML 10 ML MDV SUBQ ONE ×2 (17:51→17:59)
[2017-07-14 18:07] LABS: ALBUMIN/GLOBULIN RATIO 0.9 (1.0-2.2); BILIRUBIN,TOTAL 0.5 mg/dL (0.2-1.0); BUN - BLOOD UREA NITROGEN 51 mg/dL (6-20); CALCIUM 8.7 mg/dL (8.5-10.3); CARBON DIOXIDE - CO2 22 mmol/L (21-32); CHLORIDE 109 mmol/L (101-111); CREATININE 3.7 mg/dL (0.6-1.2); GFR - MDRD 16 (>89); GLUCOSE 306 mg/dL (70-100); LIPASE 86 U/L (22-51); SODIUM 136 mmol/L (135-145); TOTAL PROTEIN 6.5 g/dL (6.7-8.2)
[2017-07-14 18:09] LABS: POTASSIUM 6.8 mmol/L (3.5-5.0)
[2017-07-14] MEDS ORDERED: ALBUTEROL NEB 2.5 MG/3 ML INH STA (18:11)
[2017-07-14] MEDS ORDERED: SODIUM POLYSTYRENE SULFONATE 15 GM/60 ML BOTTLE PO STA (18:14)
[2017-07-14 18:15] LABS: BILIRUBIN,URINE NEGATIVE (NEGATIVE)
[2017-07-14 18:17] LABS: UA w/ MICROSCOPIC CHARGE YES
[2017-07-14] MEDS ORDERED: ALBUTEROL NEB 2.5 MG/3 ML INH ONE (18:22)
[2017-07-14 18:27] LABS: UR CULTURE IF IND NOT INDICATED; WBC,URINE 0-3 /HPF (0-3)
[2017-07-14] MEDS: SODIUM BICARBONATE ABBOJECT 50 MEQ/50 ML SYRINGE IVP STA ×2 (18:36→18:37)
[2017-07-14] MEDS ORDERED: SODIUM POLYSTYRENE SULFONATE 15 GM/60 ML BOTTLE ONE (18:37)
[2017-07-14] MEDS ORDERED: SODIUM BICARBONATE ABBOJECT 50 MEQ/50 ML SYRINGE ONE (18:37)
[2017-07-14 19:33] LABS: CREATININE 3.7 mg/dL (0.6-1.2); POTASSIUM 5.9 mmol/L (3.5-5.0)
[2017-07-14 20:04] VITALS: BP 148/78
== END 2017-07-14 20:04 | disposition home or self-care (01) ==
LOC: ED 17:03
DX: E11.65 Type 2 diabetes mellitus with hyperglycemia (principal); E11.42 Type 2 diabetes mellitus with diabetic polyneuropathy; E11.22 Type 2 diabetes mellitus with diabetic chronic kidney disease; I12.9 Hypertensive chronic kidney disease with stage 1 through stage 4 chronic kidney disease, or unspecified chronic kidney disease; N18.4 Chronic kidney disease, stage 4 (severe); Z79.4 Long term (current) use of insulin; E78.00 Pure hypercholesterolemia, unspecified; I25.10 Atherosclerotic heart disease of native coronary artery without angina pectoris; Z95.1 Presence of aortocoronary bypass graft; I25.2 Old myocardial infarction; Z79.82 Long term (current) use of aspirin; Z87.891 Personal history of nicotine dependence; Z95.0 Presence of cardiac pacemaker
CPT/HCPCS: 36415; 80048; 80053; 81001; 82009; 83690; 94640; 99284; A9270; J1815; J7613; 81003; 87086

== ENCOUNTER 2018-01-08 17:03 | Outpatient (CLI) | payer MEDICARE | END 2018-01-08 17:04 | disposition E | LOC: EMS 17:03 | PROVIDERS: ATTEND Surgery ==